=== PATIENT | female | born 1960 | race Caucasian/White ===

== ENCOUNTER 2019-11-10 15:16 | Observation (INO) | payer BC ==
[2019-11-10] MEDS ORDERED: Labetalol HCl 100 MG/20 ML VIAL SLOW IVP PRN (17:08)
[2019-11-10] MEDS ORDERED: hydrALAZINE 20 MG/ML VIAL SLOW IVP PRN (17:08)
[2019-11-10] MEDS ORDERED: Acetaminophen 325 MG TAB PO PRN (17:11)
--- NOTE | 2019-11-10 17:17 | PDOC.HHP ---
Hospitalist HPI - History of Present Illness Left sided numbness History of Present Illness: PCP: Dr. Harmeet Devi The patient is a 59/F with PMH significant for HTN, HLD, hypothyroidism and anxiety that presents to the ER for the above complaint. The patient reports acute onset of left arm and left leg numbness at approximately 1100 this morning. States that she thought it was her anxiety, so she took some lorazepam and tried to "walk it off". Her symptoms did not resolve, so she drove herself to the ER in [place]. She denies any recent trauma or falls. Denies any vision changes or dysphagia or headache. Denies any focal weakness. Denies any chest pain or heart palpitations. Denies any fever or chills. According to ER report, the patient declined tpa. ED Course: VS 98. 98.9F, 141/77, 57, 16, 96%RA NIH 2, numbness to left extremities and LLE drift GCS 15 CT brain and CTA head and neck negative AST 60 ALT 78 [id number] Other labs unremarkable Given: ASA 81mg and transferred to [facility] for further evaluation Hospitalist ROS - Review of Systems Constitutional: denies: fever, chills, sweats, weakness, malaise, other Eyes: denies: pain, vision change, conjunctivae inflammation, eyelid inflammation, redness, other ENT: denies: ear pain, ear discharge, nose pain, nose discharge, nose congestion , mouth pain, mouth swelling, throat pain, throat swelling, other Respiratory: denies: cough, dry, shortness of breath, hemoptysis, SOB with excertion, pleuritic pain, sputum, wheezing, other Gastrointestinal: denies: nausea, vomiting, abdominal pain, diarrhea, constipation, melena, hematochezia, other Genitourinary: denies: dysuria, frequency, incontinence, hematuria, retention, other Musculoskeletal: denies: neck pain, shoulder pain, arm pain, back pain, hand pain, leg pain, foot pain, other Skin: denies: rash, lesions, shayan, bruising, other Neurological: reports: numbness (Left sided). denies: weakness, incoordination , change in speech, confusion Hospitalist History - Past Medical History Source: patient Cardiac: reports: HTN (no medications, well controlled), Hyperlipidemia Psych: reports: Anxiety Endocrine: reports: Hypothyroidism - Past Surgical History Past Surgical History: reports: Appendectomy, - Family History Family History: reports: cardiac disorder, diabetes mellitus - Social History Smoking Status: Never smoker Alcohol: reports: Occassional Drugs: reports: none Living Situation: With Family Occupation: Lives in [place] with spouse, retired Activity level: independent ambulation - Exam General Appearance: NAD, awake alert Eye: PERRL, anicteric sclera ENT: normocephalic atraumatic, moist mucosa Neck: supple, no JVD Heart: RRR, no murmur, no gallops, no rubs, normal peripheral pulses Respiratory: CTAB, no wheezes, no rales, no ronchi, no tachypnea Gastrointestinal: soft, non-tender, normal bowel sounds, no guarding, no rigidity Extremities: no cyanosis, no edema Neurological: cranial nerve grossly intact Neurological - other findings: left sided numbness, LLE drift; NIH 2, GCS 15 Psychiatric: normal affect, A&O x 3 Hospitalist Results - Radiology Interpretation CT scan - head Status: report reviewed by me Other Status: report reviewed by me Additional Comment: CTA head and neck Hospitalist H&P A/P - Problem (1) CVA (cerebral vascular accident) Code(s): I63.9 - CEREBRAL INFARCTION, UNSPECIFIED Status: Acute Assessment and Plan: Admit to stroke unit, observation status Expected length of stay less than 2 midnights NIH 2, GCS 15 CT brain and CTA head and neck negative Obtain MRI and echocardiogram Consult stroke team and neurology Continue ASA Check TSH, FLP, folic acid and B12 level Permissive HTN, Neuro checks (2) Elevated LFTs Code(s): R79.89 - OTHER SPECIFIED ABNORMAL FINDINGS OF BLOOD CHEMISTRY Status : Acute Assessment and Plan: Mild elevation, asymptomatic Will recheck CMP in am (3) HTN (hypertension) Code(s): I10 - ESSENTIAL (PRIMARY) HYPERTENSION Status: Chronic Assessment and Plan: Reports no medication regimen for HTN Will monitor Blood pressure (4) HLD (hyperlipidemia) Code(s): E78.5 - HYPERLIPIDEMIA, UNSPECIFIED Status: Chronic Assessment and Plan: Does not know the name of her medication Will start high intensity statin Will check FLP Nursing to reconcile home meds (5) Hypothyroidism Code(s): E03.9 - HYPOTHYROIDISM, UNSPECIFIED Status: Chronic Assessment and Plan: Thinks she takes levothyroxine Nursing to reconcile home meds Will check TSH Will restart home meds when reconciled. (6) Anxiety Code(s): F41.9 - ANXIETY DISORDER, UNSPECIFIED Status: Chronic Assessment and Plan: Takes lorazepam as home med Will restart if needed. - Plan Plan: Consult stroke team No GI prophylaxis LMWH for DVT prophylaxis Full Code MPOA is Lalo Masterson at [phone] Meneses
[2019-11-10 20:08] VITALS: BMI 39.5
[2019-11-10 20:22] LABS: Thyroid Stimulating Hormone 2.6869 uIU/mL (0.35-4.94)
[2019-11-10] MEDS ORDERED: Atorvastatin Calcium 40 MG TAB PO SCH (21:00)
[2019-11-10] MEDS ORDERED: Lorazepam 1 MG TAB PO PRN (21:32)
[2019-11-10] MEDS ORDERED: Lorazepam 2 MG/ML VIAL SLOW IVP SCH (21:45)
[2019-11-11] MEDS ORDERED: Melatonin 3 MG TAB PO SCH (02:30)
[2019-11-11 05:03] LABS: #Eosinphils 0.6 thou/uL (0.0-0.7); #Lymphocytes 2.8 thou/uL (1.20-3.40); #Monocytes 0.5 thou/uL (0.11-0.59); #Neutrophils 3.4 thou/uL (1.40-6.50); %Basophils 0.5 % (0.0-1.0); %Monocytes 6.5 % (0.0-10.0); %Neutrophils 47.1 % (42.0-75.0); Hemoglobin 13.3 g/dL (12.0-16.0); Mean Corpuscular HGB CONC 33.4 g/dL (32.0-36.0); Mean Corpuscular Hemoglobin 28.7 pg (27.0-31.0); Mean Corpuscular Volume 85.9 fL (78.0-98.0); Mean Platelet Volume 8.4 fL (7.4-10.4); Platelet Count 200 thou/uL (130-400); RBC Distribution Width 12.1 % (11.5-14.5); Red Blood Cell (RBC) Count 4.63 mill/uL (4.20-5.40); White Blood Cell (WBC) Count 7.3 thou/uL (4.8-10.8)
[2019-11-11 05:27] LABS: ALT (SGPT) 76 U/L (8-55); AST (SGOT) 62 U/L (5-34); Albumin 4.1 g/dL (3.5-5.0); Alkaline Phosphatase 119 U/L (40-110); Anion Gap 12 mmol/L (10-20); BUN (Urea Nitrogen) 16 mg/dL (9.8-20.1); Bilirubin, Total 0.3 mg/dL (0.2-1.2); Calc. Creatinine Clearance 147 mL/min (70-130); Calcium 9.2 mg/dL (7.8-10.44); Carbon Dioxide 29 mmol/L (22-29); Cardiac Risk 3.8 (Less than 4.5); Chloride 101 mmol/L (98-107); Cholesterol 149 mg/dl (< 200 Desired); Estimated GFR-MDRD 78; Globulin 2.7 g/dL (2.4-3.5); Glucose 174 mg/dL (70-105); HDL Cholesterol 39 mg/dL (>60 Neg Risk); LDL Cholesterol, Calculated 34 mg/dL; Protein, Total 6.8 g/dL (6.0-8.3); Sodium 139 mmol/L (136-145); Triglycerides 378 mg/dL (Less than 150)
[2019-11-11] MEDS ORDERED: Aspirin 325 mg Enteric Coated Tablet PO SCH (09:00)
[2019-11-11] MEDS ORDERED: Enoxaparin Sodium 40 MG/0.4 ML SYRINGE SC SCH (09:00)
--- NOTE | 2019-11-11 09:17 | MRI ---
MRI OF BRAIN WITHOUT CONTRAST: INDICATION: Stroke. FINDINGS: Motion artifact degrades the exam. Ventricles have normal size and position. No evidence of restricted diffusion. There is no evidence of acute infarct or mass. There is no edema. No significant white matter abnormality. The intracranial internal carotid arteries and cerebral arteries show flow voids. IMPRESSION: Unremarkable MRI of brain. POS: AGW
--- NOTE | 2019-11-11 12:52 | CON ---
NEUROLOGY CONSULTATION DATE OF CONSULTATION: 11/11/2019 REASON FOR CONSULTATION: Left-sided numbness, rule out stroke. HISTORY OF PRESENT ILLNESS: Ms. Masterson is a 59-year-old female with history significant for hypertension, hyperlipidemia, hypothyroidism, and anxiety, presented to the hospital with acute onset left upper and lower extremity paresthesias which started around 11:00 on 11/10/2019. Her symptoms persisted and she drove to the emergency room in [place]. She also took some Ativan, which did not provide any relief. The patient denies any nausea, vomiting, headache, chest pain, abdominal pain, loss of vision, dizziness, vertigo, fever, cough, chills associated with the episode. In the emergency room, she was offered tPA, which she declined. She was given aspirin and transferred to [facility] for further evaluation for stroke. - Review of Systems Constitutional: denies: fever, chills, sweats, weakness, malaise, other Eyes: denies: pain, vision change, conjunctivae inflammation, eyelid inflammation, redness, other ENT: denies: ear pain, ear discharge, nose pain, nose discharge, nose congestion , mouth pain, mouth swelling, throat pain, throat swelling, other Respiratory: denies: cough, dry, shortness of breath, hemoptysis, SOB with excertion, pleuritic pain, sputum, wheezing, other Gastrointestinal: denies: nausea, vomiting, abdominal pain, diarrhea, constipation, melena, hematochezia, other Genitourinary: denies: dysuria, frequency, incontinence, hematuria, retention, other Musculoskeletal: denies: neck pain, shoulder pain, arm pain, back pain, hand pain, leg pain, foot pain, other Skin: denies: rash, lesions, shayan, bruising, other Neurological: reports: numbness (Left sided). denies: weakness, incoordination , change in speech, confusion MEDICATIONS: Aspirin Lipitor Melatonin - Past Medical History Source: patient Cardiac: reports: HTN , Hyperlipidemia Psych: reports: Anxiety Endocrine: reports: Hypothyroidism - Past Surgical History Past Surgical History: reports: Appendectomy, - Family History Family History: reports: cardiac disorder, diabetes mellitus - Social History Smoking Status: Never smoker Alcohol: reports: Occassional Drugs: reports: none Living Situation: With Family Occupation: Lives in [place] with spouse, retired Activity level: independent ambulation PHYSICAL EXAMINATION: VITAL SIGNS: Blood pressure 140/70, pulse 60, respiratory rate 18, temperature 98. General Appearance: NAD, awake alert Eye: PERRL, anicteric sclera ENT: normocephalic atraumatic, moist mucosa Neck: supple, no JVD Heart: RRR, no murmur, no gallops, no rubs, normal peripheral pulses Respiratory: CTAB, no wheezes, no rales, no ronchi, no tachypnea Gastrointestinal: soft, non-tender, normal bowel sounds, no guarding, no rigidity Extremities: no cyanosis, no edema Psychiatric: normal affect, A&O x 3 NEUROLOGICAL: Mental status; the patient is alert and oriented to person, place , and time. Cranial nerves 2 through 12 intact. Motor; muscle tone and bulk are normal. Strength 5/5 bilaterally. Cerebellar intact. Reflexes 2+ bilaterally. Sensory intact. Gait not tested due to the patient's safety reasons. DATA REVIEWED: Reviewed head CT and CTA of the head and neck, which were unremarkable. ASSESSMENT AND PLAN: Ms. Celia Masterson admitted for concern of left-sided numbness and paresthesias, which were resolved, most likely transient ischemic attack. MRI of the brain reviewed, which was negative for acute intracranial pathology. Recommend echocardiogram to rule out cardioembolic source. Permissive control of blood pressure at this time. Continue aspirin for secondary stroke prevention. Check TSH, fasting lipid panel, folic acid, and B12 level. Neuro checks every 4 hours. Telemetry to rule out arrythmias. Continue home medications. Continue PT/OT/speech. Continue medical management per Primary Team. Further recommendations depends on the results of the testing. Plan discussed in detail with the patient. We will continue to follow. Thank you for the consult. Job ID: [id number] MTDD
[2019-11-11 15:21] VITALS: BP 122/79; TEMP 98.2
[2019-11-11] MEDS ORDERED: Potassium Chloride 20 MEQ TAB PO SCH (16:30)
--- NOTE | 2019-11-12 04:15 | DIS ---
DATE OF ADMISSION: 11/10/2019 DATE OF DISCHARGE: 11/11/2019 DISCHARGE DIAGNOSES: 1. Left upper extremity paresthesias. 2. Hypertension. 3. Hyperlipidemia. 4. Hypothyroidism. 5. Anxiety disorder. CONSULTATIONS: Dr. Littlejohn with Neurology Service. PERTINENT LABORATORY AND X-RAY FINDINGS: Potassium 3.0, AST 62, ALT 76, alkaline phosphatase 119, total cholesterol 149, triglycerides 378, HDL 39, LDL 34. Vitamin B12 level 576. Folate level 14.70. TSH 2.69. CBC within normal limits. CT of the brain without contrast dated 11/10/2019, showed no acute intracranial process. CT angio of the [place] of [place] dated 11/10/2019, showed no hemodynamically significant stenosis. MRI of the brain dated 11/11/2019, showed no acute intracranial process. 2D transthoracic echocardiogram dated 11/11/2019, showed ejection fraction of 60% to 65%. Grade 1/3 diastolic dysfunction. HOSPITAL COURSE: The patient was observed on the Stroke Unit after initially presenting with left upper extremity paresthesias. The patient underwent general stroke protocol after concern for potential TIA/CVA, undergoing CT imaging of the brain including angiogram. No acute process was identified, and the patient underwent MRI imaging showing no acute process. The patient also underwent 2D transthoracic echocardiogram showing no acute process with preserved ejection fraction of 60% to 65%. The patient was evaluated by Neurology Service, however, no specific recommendations other than primary prevention measures including daily aspirin, blood pressure control, and antihyperlipidemic agents. I have examined the patient at the time of discharge and discussed followup instructions. The patient verbalized understanding and agreement, ready for discharge on 11/11/2019. DISCHARGE MEDICATIONS: 1. Enteric-coated aspirin 81 mg p.o. daily. 2. Celexa 40 mg p.o. at bedtime. 3. Hydrochlorothiazide 25 mg p.o. daily. 4. Levothyroxine 88 mcg p.o. daily. 5. Lorazepam 1 mg p.o. daily p.r.n. 6. Propranolol ER 60 mg p.o. daily. 7. Crestor 20 mg p.o. daily. ALLERGIES: NO KNOWN DRUG ALLERGIES. FOLLOWUP: The patient will follow up with her primary care provider, Dr. Akin Devi. CONDITION ON DISCHARGE: Stable. ACTIVITY: Ad-fran. DIET: Heart healthy. CODE STATUS: Full. DISPOSITION: Home on 11/11/2019. Job ID: [id number]
== END 2019-11-11 16:55 | disposition home or self-care (01) ==
LOC: ERS 15:16 → 2SE 19:15
PROVIDERS: ADMIT Internal Medicine; ATTEND Family Medicine
DX: R20.2 Paresthesia of skin (principal); R79.89 Other specified abnormal findings of blood chemistry; I10 Essential (primary) hypertension; E78.00 Pure hypercholesterolemia, unspecified; E78.5 Hyperlipidemia, unspecified; F41.9 Anxiety disorder, unspecified; E03.9 Hypothyroidism, unspecified; Z79.82 Long term (current) use of aspirin; Z79.899 Other long term (current) drug therapy
CPT/HCPCS: 36415; 70551; 80053; 80061; 82607; 82746; 84443; 85025; 93306; 96372; 96374; 96376; G0378; J1650; J2060